=== PATIENT | male | born 1980 | race African-American/Black ===

== ENCOUNTER 2021-08-02 20:42 | Emergency (ER) | payer OTHER, SELFPAY ==
[2021-08-02 22:09] VITALS: BP 131/96; PULSE 107; RESP 16; TEMP 37.6; O2SAT 98; BMI 25.8
--- NOTE | 2021-08-02 22:41 | ED.ALLEREA ---
HPI - Allergic Reaction General Chief complaint: Allergic Reaction Stated complaint: ears and head swollen Time Seen by Provider: 08/02/21 22:40 Source: patient Mode of arrival: ambulatory History of Present Illness HPI narrative: 41-year-old male presents with significant swelling to the scalp after using hair dye for the 2nd time (he has used hair dye previously and experienced the same scalp swelling ?but to a lesser degree?). Patient states that he had to shave his entire head and cleaned it with soap and water. He endorses that the directions did say to test the dye on area of his ear prior to applying to his entire head but he decided not to do this. Patient states that the swelling has significantly worsened and is more pronounced on the left and involves the year but denies any shortness of breath, difficulty breathing, difficulty swallowing. Related Data Allergies Allergy/AdvReac Type Severity Reaction Status Date / Time No Known Allergies Allergy Verified 08/02/21 22:09 Review of Systems Review of Systems: Pertinent positives and negatives as stated in HPI 10 point review of systems is otherwise negative. PMFSH Past Medical History Source: nursing notes reviewed Medical History Asthma Social History Social History Advance Directives: No Physical Exam ED Vital Signs: Vital Signs - 24 hr 08/02/21 22:09 Temperature 99.6 F Pulse Rate 107 H Respiratory Rate 16 Blood Pressure 131/96 H Pulse Oximetry 98 BMI result Body Mass Index 25.8 VITAL SIGNS: Reviewed. GENERAL: Well developed, well nourished, in no acute distress. HEAD: Scalp is significantly edematous with erythema most pronounced over the left temporal/parietal area with significant swelling of the left ear the gives the appearance of cauliflower ear and no external canal involvement EYES: PERRLA, EOMI EARS: Ext canals without abnormality, TMs non-bulging and non-erythematous, but left ear with significant swelling NOSE: Nares patent bilateral OROPHARYNX: no oral lesions noted, posterior pharynx clear without tongue/lip/facial swelling NECK: Supple, no adenopathy LUNGS: Normal breath sounds, no wheeze/rhonchi/rales, no stridor and no tachypnea. 98% on room air CARDIOVASCULAR: Regular rate and rhythm without noted murmurs ABDOMEN: Soft, non-tender, non-distended with bowel sounds. MUSCULOSKELETAL: No tenderness, deformities, or effusions noted on gross inspection. EXTREMITIES: No cyanosis, clubbing or edema. SKIN: Inspection of the skin reveals no rashes NEUROLOGIC: Alert and oriented x 4. Strength and sensation to light touch were grossly intact x 4. Course Course Course Narrative: 41-year-old male with history and clinical presentation consistent with allergic reaction to hair dye for the 2nd time. There is no noticed airway involvement or evidence of angioedema. Patient will receive Benadryl/Pepcid/Solu-Medrol. On re-evaluation patient is much improved and continues to do well. There is no evidence of anaphylaxis or angioedema and patient was discharged home in stable condition with instructions to continue taking Benadryl over the next 24 hours. Discharge Plan Discharge Clinical Impression: Allergic reaction, Contact dermatitis Patient Disposition: Home, Self-Care Instructions: General Allergic Reaction (ED), Contact Dermatitis (ED) Additional Instructions: No more hair dye. Continue to use Benadryl over the next 24-48 hours. Return to the ER if you develop any difficulty with breathing or swallowing.
[2021-08-02] MEDS: diphenhydrAMINE HCL 50 MG/ML VIAL 25 MG IVPUSH (22:58)
[2021-08-02] MEDS: Famotidine/PF 20 MG/2 ML VIAL IVPUSH (22:58)
[2021-08-02] MEDS: methylPREDNISolone Sod Succ 125 MG/2 ML VIAL IVPUSH (22:58)
[2021-08-03] VITALS: BP 120/77; PULSE 79; RESP 16; TEMP 37; O2SAT 98
== END 2021-08-03 00:40 | disposition home or self-care (01) ==
PROVIDERS: Emergency Provider Student in an Organized Health Care Education/Training Program
DX: L23.2 Allergic contact dermatitis due to cosmetics (principal)
CPT/HCPCS: 96374; 96375; 99284; J1200; J2930